=== PATIENT | male | born 1980 | race Caucasian/White ===

== ENCOUNTER 2017-03-27 16:43 | Emergency (ER) | payer OTHER ==
[2017-03-27 16:59] VITALS: BP 136/86
--- NOTE | 2017-03-27 17:24 | ED Physician Documentation ---
PD HPI MHE - Stated complaint Stated Complaint: SI - Chief complaint Chief Complaint: MHE - History obtained from History obtained from: Patient - History of Present Illness Primary symptom: Other (He is under a lot of stress at work, somebody said something today the pistoning off and he became very angry. He says he said something along the lines of "this is the sort of thing that would make someone hold a gun to their head." He says he is not suicidal nor does he have any intention of doing anything like that.) Review of Systems Cardiac: denies: Chest pain / pressure, Palpitations GI: denies: Abdominal Pain PD PAST MEDICAL HISTORY - Past Medical History Past Medical History: No - Past Surgical History Past Surgical History: No - Present Medications Home Medications: Ambulatory Orders Medication Instructions Recorded Confirmed No Known Home Medications [No 03/27/17 03/27/17 Known Home Medications] - Allergies Allergies/Adverse Reactions: Allergies Allergy/AdvReac Type Severity Reaction Status Date / Time No Known Drug Allergies Allergy Verified 03/27/17 16:56 - Social History Does the pt smoke?: Yes Smoking Status: Current every day smoker Does the pt drink ETOH?: No Does the pt have substance abuse?: No - Immunizations Immunizations are current?: Yes - POLST Patient has POLST: No PD ED PE NORMAL - Vitals Vital signs reviewed: Yes - General General: Alert and oriented X 3, No acute distress - Neuro Neuro: Alert and oriented X 3 Eye Opening: Spontaneous Motor: Obeys Commands Verbal: Oriented GCS Score: 15 - Psych Psych: Normal mood, Normal affect Results - Vitals Vitals: Vital Signs - 24 hr 03/27/17 16:56 Temperature 36.4 C L Heart Rate 69 Respiratory 18 Rate Blood Pressure 136/86 H O2 Saturation 97 Oxygen O2 Source Room air PD MEDICAL DECISION MAKING - ED course ED course: 36-year-old gentleman [place] specifically a suicidal threat but they sent him here to get cleared. He is not suicidal. Departure - Departure Disposition: 01 Home, Self Care Clinical Impression: Stress reaction Condition: Good Record reviewed to determine appropriate education?: Yes Instructions: ED Stress React Comments: Call your doctor to arrange a follow-up appointment, make the next available appointment. In the interim, return anytime if worse or if new symptoms develop. Your blood pressure was elevated today on check into the emergency department. This does not mean that you have hypertension, it is a common phenomenon to come to the emergency department and have elevated blood pressure. I recommend that you see your primary care physician within the week to have it rechecked when you are feeling better.
== END 2017-03-27 17:29 | disposition home or self-care (01) ==
LOC: ED 16:43
DX: F43.9 Reaction to severe stress, unspecified (principal); F17.200 Nicotine dependence, unspecified, uncomplicated; R03.0 Elevated blood-pressure reading, without diagnosis of hypertension
CPT/HCPCS: 99282; 99283